=== PATIENT | male | born 1950 | race Caucasian/White ===

== ENCOUNTER → 2020-05-08 | Outpatient (CLI) | payer OTHER, MEDICARE ==
[~2020-05-08] MED LIST: ACTOS 45 MG45 MG PO; AMLODIPINE BESY10 MG; AMLODIPINE BESY10 MG PO; ASPIRIN EC81 M1 PO; DILAUDID8 MG PO; DURAGESIC TD; GLUCOPHAGE1000 MG PO; GLYBURIDE 5 MG T5 M1 PO; HYDROCHLOROTHIA50 MG PO; LOPRESSOR 50 MG50 M1 PO; METHADONE HCL 110 M1 PO; NEURONTIN800 MG PO; SIMVASTATIN40 MG PO; TRILEPTAL150 MG PO
[2020-05-08 09:40] LABS: APTT 28.5 Seconds (24.5-32.8); PROTIME 10.6 Seconds (9.3-11.4)
== END ==
LOC: CAT 08:00
PROVIDERS: Radiology Diagnostic Radiology
DX: M50.30 Other cervical disc degeneration, unspecified cervical region (principal); M51.16 Intervertebral disc disorders with radiculopathy, lumbar region; M51.14 Intervertebral disc disorders with radiculopathy, thoracic region; M48.061 Spinal stenosis, lumbar region without neurogenic claudication; G89.28 Other chronic postprocedural pain; M43.27 Fusion of spine, lumbosacral region